=== PATIENT | female | born 1995 | race Caucasian/White ===

== ENCOUNTER 2024-03-21 15:23 | Emergency (ER) | payer SELFPAY ==
[2024-03-21 15:24] VITALS: BP 108/70
[2024-03-21 15:54] VITALS: BMI 33.5
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
[2024-03-21 16:36] LABS: % Basophils 0.6 % (0-2); % Eosinophils 0.7 % (0-6); % Immature Granulocytes 0.4 % (0-0.5); % Lymphocytes 15.2 % (20.5-51.1); % Monocytes 5.1 % (1.7-9.3); Absolute Basophils 0.1 10^3/uL (0-0.2); Absolute Eosinophils 0.1 10^3/uL (0-0.7); Absolute Immature Granulocytes 0.1 10^3/uL (0-0.05); Absolute Lymphocytes 2.7 10^3/uL (1.2-3.4); Absolute Monocytes 0.9 10^3/uL (0.1-0.6); Hematocrit 43.6 % (37.0-47.0); Hemoglobin 14.8 g/dL (12.0-16.0); Mean Corp Hgb Conc. 33.9 g/dL (33.0-37.0); Mean Corpuscular Volume 88.4 fL (81.0-99.0); Mean Platelet Volume 9.8 fL (7.4-10.4); Nucleated Red Blood Cells % 0 %; Platelet Count 365 10^3/uL (130-400); Red Blood Cell Count 4.93 10^6/uL (4.20-5.40); Red Cell Dist. Width 11.7 % (11.5-14.5); White Blood Cell Count 17.9 10^3/uL (4.8-10.8)
[2024-03-21] MEDS: TYLENOL 650 MG PO (16:47)
[2024-03-21 16:52] LABS: HCG, Serum Qualitative Screen Negative
[2024-03-21 17:01] LABS: ALT (SGPT) 18 U/L (0-35); AST (SGOT) 25 U/L (14-36); Albumin 4.3 g/dl (3.5-5.0); Alkaline Phosphatase 88 U/L (38-126); Blood Urea Nitrogen 11 mg/dl (7-17); Calcium 9.6 mg/dl (8.4-10.2); Carbon Dioxide 19 mmol/L (22-30); Chloride 107 mmol/L (98-107); Estimated Creatinine Clearance > 125 ml/min; Glucose 99 mg/dl (70-99); Potassium 4.2 mmol/L (3.5-5.1); Sodium 136 mmol/L (135-145); Total Bilirubin 0.7 mg/dl (0.2-1.3); Total Protein 7.8 g/dl (6.3-8.2); eGFR > 60.00
[2024-03-21 18:12] VITALS: BP 106/68
[2024-03-21] MEDS: TORADOL 15 MG IV (18:26)
== END 2024-03-21 19:24 | disposition home or self-care (01) ==
LOC: EMR 15:23
PROVIDERS: Physician Assistant; EMERGENCY PHYSICIAN Student in an Organized Health Care Education/Training Program; FAMILY PHYSICIAN Family Medicine
DX: S02.2XXA Fracture of nasal bones, initial encounter for closed fracture (principal); R91.1 Solitary pulmonary nodule; S01.111A Laceration without foreign body of right eyelid and periocular area, initial encounter; V89.2XXA Person injured in unspecified motor-vehicle accident, traffic, initial encounter; Y92.410 Unspecified street and highway as the place of occurrence of the external cause; R51.9 Headache, unspecified; J45.909 Unspecified asthma, uncomplicated
CPT/HCPCS: 99284; 96374; 70450; 70486; 71260; 72125; 74177; 80053; 84703; 85025; Q9967